=== PATIENT | female | born 1935 | race Caucasian/White ===

== ENCOUNTER → 2021-03-16 | Outpatient (CLI) | payer MEDICARE ==
--- NOTE | 2021-03-16 13:29 | RAD ---
EXAM: Thoracic spine, 3 views. HISTORY: Pain. COMPARISON: None. FINDINGS: 3 views of the thoracic spine are obtained. There is mild thoracic dextroscoliosis. There i s no significant listhesis. There is no fracture. There is mild multilevel endplate remodeling. There are few endplate Schmorl's nodes. IMPRESSION: 1. Mild multilevel degenerative change. 2. No acute osseous finding. Electronically signed by: Denia Hamilton MD (03/16/2021 1:26 PM) [id number]
== END ==
LOC: RAD 12:48
PROVIDERS: ATTEND Specialist
DX: S22.000S Wedge compression fracture of unspecified thoracic vertebra, sequela (principal); M47.814 Spondylosis without myelopathy or radiculopathy, thoracic region; M41.84 Other forms of scoliosis, thoracic region; M51.44 Schmorl's nodes, thoracic region; X58.XXXS Exposure to other specified factors, sequela
CPT/HCPCS: 72072

== ENCOUNTER → 2021-04-25 | Outpatient (CLI) | payer MEDICARE ==
--- NOTE | 2021-04-25 12:31 | RAD ---
EXAM: Thoracic spine, 3 views. HISTORY: Compression fracture. COMPARISON: 03/16/2021 FINDINGS: 3 views of the thoracic spine are obtained. There is mild S-shaped thoracic scoliosis. Ther e is a mild wedge compression deformity of T11. There is no retropulsion of the cortex at this level. There is multilevel anterior predominant endplate remodeling and spurring. There is suspected bone d emineralization. IMPRESSION: 1. Stable mild compression deformity of T11. 2. Multilevel degenerative change and mild scoliosis. 3. Bone demineralization. Electronically signed by: Denia Hamilton MD (04/25/2021 12:29 PM) [id number]
== END ==
LOC: RAD 11:46
PROVIDERS: ATTEND Specialist
DX: S22.000S Wedge compression fracture of unspecified thoracic vertebra, sequela (principal); M43.8X4 Other specified deforming dorsopathies, thoracic region; M41.84 Other forms of scoliosis, thoracic region; X58.XXXS Exposure to other specified factors, sequela
CPT/HCPCS: 72072

== ENCOUNTER → 2021-05-08 | Outpatient (CLI) | payer MEDICARE ==
--- NOTE | 2021-05-08 11:08 | RAD ---
INDICATION: Screening for osteopenia/osteoporosis. Postmenopausal evaluation COMPARISON: None. TECHNIQUE: Bone densitometry was performed through the lumbar spine and proximal femur. IMPRESSION: Lumbar Spine: BMD: 0.73 T-Score: -3.7 Range: Osteoporotic Proximal Femur: BMD: 0.54 T-Score: -3.4 Range: Osteoporotic. There is high density seen at the hip joint which could be sclerosis from degene rative changes. There is also a focus of high density in the right iliac bone superior to the acetabu lum. Difficult to tell this is artifactual in nature or secondary to a sclerotic lesion and if furthe r evaluation is desired a plain film could further assess. World [employer] Organization Criteria for Bone Density: T-Score: > -1.0: Normal Range < -1.0 to -2.5: Osteopenic Range < -2.5: Osteoporotic Range Electronically signed by: Yamil Park MD (05/08/2021 11:06 AM) [id number]
== END ==
LOC: DXRAD 09:08
PROVIDERS: ATTEND Specialist
DX: S22.000S Wedge compression fracture of unspecified thoracic vertebra, sequela (principal); X58.XXXS Exposure to other specified factors, sequela; N95.9 Unspecified menopausal and perimenopausal disorder
CPT/HCPCS: 77080